=== PATIENT | female | born 1945 | race Caucasian/White ===

== ENCOUNTER → 2017-06-11 | Outpatient (REF) | payer MEDICARE ==
[2017-06-11 13:59] LABS: INFLUENZA A AMPLIFICATION NEGATIVE (NEGATIVE); INFLUENZA B AMPLIFICATION POSITIVE (NEGATIVE); RSV AMPLIFICATION NEGATIVE (NEGATIVE)
== END ==
LOC: M LAB REF 13:03
DX: J11.1 Influenza due to unidentified influenza virus with other respiratory manifestations (principal)
CPT/HCPCS: 87631

== ENCOUNTER → 2019-05-22 | Outpatient (CLI) | payer MEDICARE ==
[~2019-05-22] MED LIST: ALEV220C2 PO; COUM1TAB18 PO; OXYC1TAB23 PO; POLY1POW4 PO; SENO8.6T9 PO
[2019-05-22 17:25] LABS: ALBUMIN 3.7 GM/DL (3.2-5.2); ALT/SGPT 61 U/L (12-78); AMYLASE 68 U/L (25-115); BILIRUBIN,TOTAL 0.6 MG/DL (0.2-1.0); BLOOD UREA NITROGEN 17 MG/DL (7-18); C REACTIVE PROTEIN QUANTITATIV 0.48 MG/DL (0.00-0.30); CALCIUM LEVEL 9.1 MG/DL (8.8-10.2); CARBON DIOXIDE LEVEL 28 MEQ/L (21-32); CHLORIDE LEVEL 105 MEQ/L (98-107); CREATININE FOR GFR 0.38 MG/DL (0.55-1.30); GLOMERULAR FILTRATION RATE > 60.0 (>39); GLUCOSE, FASTING 99 MG/DL (70-100); LIPASE 248 U/L (73-393); POTASSIUM SERUM 3.9 MEQ/L (3.5-5.1); SODIUM LEVEL 141 MEQ/L (136-145); TOTAL PROTEIN 6.7 GM/DL (6.4-8.2)
[2019-05-22 17:33] LABS: BASO # 0.1 10^3/uL (0.0-0.2); BASO % 0.5 % (0.0-1.0); EOS % 0.3 % (0.0-3.0); HEMATOCRIT 46.3 % (36.0-47.0); HEMOGLOBIN 14.8 g/dl (12.0-15.5); LYMPH # 0.8 10^3/uL (1.5-5.0); LYMPH % 8.2 % (24.0-44.0); MEAN CORPUSCULAR HEMOGLOBIN 29.5 pg (27.0-33.0); MEAN CORPUSCULAR VOLUME 92.2 fl (80.0-96.0); MONO # 0.5 10^3/uL (0.0-0.8); MONO % 5.4 % (0.0-5.0); NEUTROPHILS # 8.2 10^3/uL (1.5-8.5); PLATELET COUNT, AUTOMATED 237 10^3/uL (150-450); RED BLOOD COUNT 5.02 10^6/uL (4.00-5.40); WHITE BLOOD COUNT 9.6 10^3/uL (4.0-10.0)
--- NOTE | 2019-05-23 07:58 | REP ---
KUB ABDOMEN AND PELVIS: AP view of the abdomen and pelvis is performed. I do not see significantly dilated small bowel loops with no compelling evidence for small bowel obstruction. Mild vascular calcifications are seen in the pelvis. There are mild degenerative changes of the spine. Metallic fixation is seen in the proximal right femur. IMPRESSION: No compelling evidence radiographically for small bowel obstruction. Electronically Signed by Augie Sanon MD 05/23/2019 06:04 P
[2019-05-23 13:22] LABS: HEPATITIS B SURFACE ANTIGEN NEGATIVE (NEGATIVE)
[2019-05-23 13:50] LABS: HEPATITIS B CORE ANTIBODY IGM NEGATIVE (NEGATIVE); HEPATITIS C VIRUS ABY INDEX < 0.0 INDEX (<0.8)
[2019-05-23 14:06] LABS: HEPATITIS A ANTIBODY IGM NEGATIVE (NEGATIVE)
== END ==
LOC: M WUC 15:06
PROVIDERS: ATTEND Physician Assistant
DX: R11.2 Nausea with vomiting, unspecified (principal); R10.84 Generalized abdominal pain

== ENCOUNTER 2019-05-25 18:36 | Emergency (ER) | payer MEDICARE ==
[~2019-05-25] VITALS: Ht 157.5 cm; Wt 43.1 kg
[2019-05-25] MEDS ORDERED: NON-325T5 PO (18:45)
[2019-05-25] MEDS ORDERED: ONDA4TAB6 (18:45)
[2019-05-25 19:49] LABS: BASO # 0.1 10^3/uL (0.0-0.2); BASO % 0.7 % (0.0-1.0); EOS % 0.3 % (0.0-3.0); HEMATOCRIT 44.3 % (36.0-47.0); HEMOGLOBIN 14.4 g/dl (12.0-15.5); LYMPH # 0.8 10^3/uL (1.5-5.0); LYMPH % 8.9 % (24.0-44.0); MEAN CORPUSCULAR HGB CONC 32.5 g/dl (32.0-36.5); MEAN CORPUSCULAR VOLUME 92.3 fl (80.0-96.0); MONO # 0.6 10^3/uL (0.0-0.8); MONO % 6.3 % (0.0-5.0); NEUTROPHILS # 7.5 10^3/uL (1.5-8.5); NEUTROPHILS % 82.9 % (36.0-66.0); PLATELET COUNT, AUTOMATED 225 10^3/uL (150-450); WHITE BLOOD COUNT 9.1 10^3/uL (4.0-10.0)
[2019-05-25 20:17] LABS: ALBUMIN 3.2 GM/DL (3.2-5.2); ALT/SGPT 80 U/L (12-78); BILIRUBIN,DIRECT 0.2 MG/DL (0.0-0.2); BILIRUBIN,TOTAL 0.5 MG/DL (0.2-1.0); BLOOD UREA NITROGEN 13 MG/DL (7-18); CALCIUM LEVEL 8.9 MG/DL (8.8-10.2); CARBON DIOXIDE LEVEL 30 MEQ/L (21-32); CHLORIDE LEVEL 103 MEQ/L (98-107); CREATININE FOR GFR 0.33 MG/DL (0.55-1.30); GLOMERULAR FILTRATION RATE > 60.0 (>39); GLUCOSE, FASTING 108 MG/DL (70-100); LIPASE 248 U/L (73-393); POTASSIUM SERUM 3.6 MEQ/L (3.5-5.1); SODIUM LEVEL 141 MEQ/L (136-145); TOTAL PROTEIN 6.3 GM/DL (6.4-8.2)
[2019-05-25] MEDS ORDERED: NS 1,000 ML IV ONE (20:30)
[2019-05-25] MEDS ORDERED: PANTOPRAZOLE 40MG INJ (PROTONIX) (C9113) IV ONE (20:30)
[2019-05-25] MEDS ORDERED: ISOVUE-370 76% 100ML VIAL (Q9967) As Ordered ONE (20:36)
--- NOTE | 2019-05-25 22:04 | REPVR ---
PROCEDURE INFORMATION: Exam: CT Abdomen And Pelvis With Contrast Exam date and time: 05/25/2019 8:42 PM Age: 73 years old Clinical indication: Abdominal pain; Localized; Right upper quadrant (ruq); Additional info: Ruq pain, n/v, fatigue TECHNIQUE: Imaging protocol: Computed tomography of the abdomen and pelvis with intravenous contrast. Radiation optimization: All CT scans at this facility use at least one of these dose optimization techniques: automated exposure control; mA and/or kV adjustment per patient size (includes targeted exams where dose is matched to clinical indication); or iterative reconstruction. Contrast material: ISOVUE 370; Contrast volume: 100 ml; Contrast route: IV; COMPARISON: CR Pelvis, complete 10/04/2012 9:22 PM FINDINGS: Liver: Multiple complex solid and mixed solid centrally necrotic hypodense masses in the liver consistent with metastatic disease measuring up to 7 cm in the hepatic dome. Hepatomegaly. Gallbladder and bile ducts: Normal. No calcified stones. No ductal dilation. Pancreas: Normal. No ductal dilation. Spleen: The spleen demonstrates punctate calcifications, consistent with remote granulomatous organism exposure. Adrenals: Normal. No mass. Kidneys and ureters: 5 cm simple cyst in the upper pole of the left kidney. Stomach and bowel: Several small bowel loops in the lower abdomen demonstrate thickened schofield. Finding may be related to hypoproteinemia. Clinical correlation to exclude enteritis suggested. Lobular process in the right colon at the ileocecal valve measures 4.8 x 2.3 x 2.8 cm. Finding may represent fluid contents from the small bowel entering the right colon although a necrotic mass not excluded. Correlation with colonoscopy suggested if clinically desired. Appendix: No evidence of appendicitis. Intraperitoneal space: Unremarkable. No free air. No significant fluid collection. Vasculature: The aorta demonstrates moderate atherosclerotic calcification. Lymph nodes: Unremarkable. No enlarged lymph nodes. Bladder: Unremarkable as visualized. Reproductive: There has been a hysterectomy. Bones/joints: Grade 1 anterolisthesis of L4 on L5. Mild central spinal stenosis at L2-L3, moderate central spinal stenosis at L3-L4, severe central spinal stenosis at L4-L5. ORIF right hip. Soft tissues: See Stomach And Bowel Finding. IMPRESSION: 1. Multiple complex solid and mixed solid centrally necrotic hypodense masses in the liver consistent with metastatic disease measuring up to 7 cm in the hepatic dome. Hepatomegaly. 2. Several small bowel loops in the lower abdomen demonstrate thickened schofield. Finding may be related to hypoproteinemia. Clinical correlation to exclude enteritis suggested. 3. There has been a hysterectomy. 4. Lobular process in the right colon at the ileocecal valve measures 4.8 x 2.3 x 2.8 cm. Finding may represent fluid contents from the small bowel entering the right colon although a necrotic mass not excluded. Correlation with colonoscopy suggested if clinically desired. Electronically signed by: Eros Munoz On 05/25/2019 22:04:29 PM
--- NOTE | 2019-05-25 23:42 | REPVR ---
PROCEDURE INFORMATION: Exam: CT Chest Without Contrast Exam date and time: 05/25/2019 10:50 PM Age: 73 years old Clinical indication: Mass, lump, or swelling in the chest; Additional info: Metastatic disease CT abd/pel, cxr w/abnormal mass finding TECHNIQUE: Imaging protocol: Computed tomography of the chest without contrast. 3D rendering: MIP and/or 3D reconstructed images were created by the technologist. Radiation optimization: All CT scans at this facility use at least one of these dose optimization techniques: automated exposure control; mA and/or kV adjustment per patient size (includes targeted exams where dose is matched to clinical indication); or iterative reconstruction. COMPARISON: CR Chest, 2 view PA, Lat 05/25/2019 8:32 PM FINDINGS: Lungs: Lungs are hyperinflated. Right upper lobe perihilar mass causes narrowing of the bronchus intermedius, and lobar bronchi on the right. No obstructing intraluminal masses identified. Small noncalcified nodules in the right lower lobe measuring up to 5 mm. No masses in the left lung. No airspace consolidation. Mild interstitial scarring in the lung apices. Pleural space: Unremarkable. No pneumothorax. No pleural effusion. Heart: Coronary artery atherosclerotic disease is present. Mediastinum: Ill-defined mass in the right hilum which is not clearly separable from adjacent mediastinal vascular and bronchial structures. Aorta: Unremarkable. No aortic aneurysm. Lymph nodes: Small mediastinal lymph nodes are noted but are difficult to evaluate or measure due to lack of intravenous contrast. Liver: Innumerable masses of varying size throughout the liver. Bones/joints: Ill-defined area of sclerosis in the T12 vertebral body. No destructive bone lesions are seen. Mild degenerative spondylosis. Soft tissues: Additional scattered small calcified granulomata on the right. IMPRESSION: 1. Ill-defined right lower lobe perihilar mass encasing and narrowing the right pulmonary airways. Additional small nodules in the right lung. Mild mediastinal adenopathy, suboptimally visualized without IV contrast. 2. Ill-defined area of sclerosis at T12 is nonspecific but metastatic disease cannot be excluded. No destructive bone lesions or pathologic fracture. 3. Innumerable masses in the liver. Electronically signed by: Nishant Randall On 05/25/2019 23:41:37 PM
--- NOTE | 2019-05-26 00:47 | REP ---
Clinical: Decreased appetite and fatigue . Comparison: 10/04/2012 . Technique: PA and lateral. Findings: The mediastinum and cardiac silhouette are essentially normal. The lung fernandez demonstrate chronic-appearing changes without acute consolidation, effusion, or pneumothorax. The skeletal structures are intact and normal. Impression: 1. No obvious acute cardiopulmonary process. Electronically Signed by Fran Stanley MD 05/26/2019 12:37 A
[2019-05-26] MEDS ORDERED: MACR100C43 PO (00:50)
[2019-05-26] MEDS ORDERED: PANT40TA3 PO (00:50)
[2019-05-26] MEDS ORDERED: ONDA4TAB6 PO (00:50)
[2019-05-26] MEDS ORDERED: NORC1TAB7 PO (00:50)
[2019-05-26] MEDS ORDERED: NORCO 5/325MG TABLET (BULK FOR ED) PO ONE (01:00)
[2019-05-26] MEDS ORDERED: NITROFURANTOIN (MACROBID) 100 MG CAP PO ONE (01:00)
[2019-05-26] MEDS: ONDANSETRON 4 MG TAB (S0181) PO ONE ×2 (01:21→01:29)
[2019-05-26 01:25] VITALS: BP 135/71
[2019-05-26] MEDS ORDERED: ONDANSETRON 4 MG ORAL DISINTEGRATING TAB (Q0162 PER 1MG) PO ONE (01:30)
--- NOTE | 2019-05-26 11:53 | ED PDOC ---
Post-Departure Follow-Up dr padron and dr aguilar faxed formal report of ct abd/p for fu Dilip Reyes MD May 26, 2019 11:53
--- NOTE | 2019-05-26 15:36 | ED PDOC ---
Post-Departure Follow-Up Dr. Moss consulted at 2330 on 05/25/[address] ABD/PEL was reviewed. CT findings discussed with Dr. Moss along with labs and pt's c/o and current condition. Dr. Moss stated that there wasn't anything acutely emergent nor surgical after review of CT ABD/PEL. Lyndsay WisemanP May 26, 2019 15:36
[2019-05-31] MEDS ORDERED: D3 22000 PO (08:58)
[2019-05-31] MEDS ORDERED: MULTCAP PO (08:58)
[2019-05-31] MEDS ORDERED: ZOFR8TAB24 PO (09:38)
== END 2019-05-26 02:00 | disposition home or self-care (01) ==
LOC: M ED 18:36
DX: N39.0 Urinary tract infection, site not specified (principal); R91.8 Other nonspecific abnormal finding of lung field; R93.2 Abnormal findings on diagnostic imaging of liver and biliary tract; R93.7 Abnormal findings on diagnostic imaging of other parts of musculoskeletal system; R16.0 Hepatomegaly, not elsewhere classified; R93.3 Abnormal findings on diagnostic imaging of other parts of digestive tract; Z87.01 Personal history of pneumonia (recurrent); Z85.43 Personal history of malignant neoplasm of ovary; Z92.3 Personal history of irradiation; F17.200 Nicotine dependence, unspecified, uncomplicated; Z79.899 Other long term (current) drug therapy
CPT/HCPCS: 36415; 71046; 71250; 74177; 80048; 80076; 81001; 83690; 85025; 87086; 96374; 99284; C9113; Q0162; Q9967

== ENCOUNTER → 2019-06-02 | Outpatient (CLI) | payer MEDICARE ==
[~2019-06-02] MED LIST changes: +D3 22000 PO; +HYDR-3713 PO; +LIDOCAINE 1% MDV 20ML VIAL As Ordered ONE; +MACR100C43 PO; +MULTCAP PO; +NITR100C2 PO; +NON-325T5 PO; +NORC1TAB7 PO; +ONDA4TAB6 PO; +ONDA8TAB10 PO; +PANT-23 PO; +PANT40TA3 PO; +ZOFR8TAB24 PO
[2019-06-02 14:20] VITALS: BP 124/64
--- NOTE | 2019-06-02 17:04 | REP ---
Ultrasound-guided targeted liver biopsy This procedure was performed by Lashaun DOUGLAS, under the direct supervision of Dr. Santoyo. The risks and benefits of the procedure were explained to the patient and informed consent was obtained both verbally and written. Directly prior to the start of the procedure, a formal timeout was done in the procedure room. A mass in the left lobe of the liver was localized using ultrasound guidance. The skin was prepped and draped in a sterile fashion. 10 ml of 1% lidocaine 10 mg/ml was used as a local anesthetic. Using ultrasound guidance a small skin demetrio was made and a 19/20 gauge coaxial needle biopsy system was inserted and advanced into the liver. 8 core biopsy samples were obtained and sent to the lab. The patient tolerated the procedure well and there were no immediate complications. After the appropriate monitored convalescence the patient was discharged home from the department. Reviewed by STELLA Nichols 06/02/2019 02:54 P Electronically Signed by Sathish Santoyo MD 06/02/2019 04:55 P
== END ==
LOC: M IRPRO 11:28
PROVIDERS: ATTEND Internal Medicine Hematology & Oncology
DX: C78.7 Secondary malignant neoplasm of liver and intrahepatic bile duct (principal)

== ENCOUNTER 2019-06-04 20:07 | Inpatient (IN) | payer MEDICARE ==
[~2019-06-04] VITALS: Ht 157.5 cm; Wt 39.6 kg
[~2019-06-04 20:07] MED LIST changes: -HYDR-3713 PO; -LIDOCAINE 1% MDV 20ML VIAL As Ordered ONE; -NITR100C2 PO; -ONDA8TAB10 PO; -PANT-23 PO
[2019-06-04] MEDS ORDERED: NS 1,000 ML IV ONE (20:45)
[2019-06-04 20:48] LABS: BASO % 0.4 % (0.0-1.0); EOS % 0.1 % (0.0-3.0); HEMATOCRIT 46.9 % (36.0-47.0); HEMOGLOBIN 15.2 g/dl (12.0-15.5); LYMPH # 0.8 10^3/uL (1.5-5.0); MEAN CORPUSCULAR HEMOGLOBIN 29.4 pg (27.0-33.0); MEAN CORPUSCULAR HGB CONC 32.4 g/dl (32.0-36.5); MEAN CORPUSCULAR VOLUME 90.7 fl (80.0-96.0); MONO # 0.8 10^3/uL (0.0-0.8); MONO % 7.2 % (0.0-5.0); NEUTROPHILS # 9.1 10^3/uL (1.5-8.5); NEUTROPHILS % 84.5 % (36.0-66.0); PLATELET COUNT, AUTOMATED 250 10^3/uL (150-450); RED BLOOD COUNT 5.17 10^6/uL (4.00-5.40); WHITE BLOOD COUNT 10.8 10^3/uL (4.0-10.0)
[2019-06-04] MEDS ORDERED: ISOVUE-370 76% 100ML VIAL (Q9967) As Ordered ONE (20:59)
[2019-06-04 21:14] LABS: ALBUMIN 3.5 GM/DL (3.2-5.2); BILIRUBIN,DIRECT 0.4 MG/DL (0.0-0.2); BILIRUBIN,TOTAL 0.8 MG/DL (0.2-1.0); TOTAL PROTEIN 7.1 GM/DL (6.4-8.2)
--- NOTE | 2019-06-04 21:30 | REPVR ---
PROCEDURE INFORMATION: Exam: CT Head Without Contrast Exam date and time: 06/04/2019 9:05 PM Age: 73 years old Clinical indication: Altered mental status/memory loss; Additional info: Weakness, altered mental status, new dx of masses TECHNIQUE: Imaging protocol: Computed tomography of the head without contrast. Radiation optimization: All CT scans at this facility use at least one of these dose optimization techniques: automated exposure control; mA and/or kV adjustment per patient size (includes targeted exams where dose is matched to clinical indication); or iterative reconstruction. COMPARISON: No relevant prior studies available. FINDINGS: Brain: Numerous hyperdense ring densities bilaterally involving the cerebral hemispheres and cerebellum. There is minimal patchy low attenuation of deep white matter. Ventricles: Normal. No ventriculomegaly. Bones/joints: Unremarkable. No acute fracture. Sinuses: Visualized sinuses are unremarkable. No fluid levels. Mastoid air cells: Visualized mastoid air cells are well aerated. Soft tissues: Unremarkable. Other findings: Mild hyperdense extra-axial mass in the paramedian right frontal region measuring up to 12 mm in thickness and approximately 28 mm across. IMPRESSION: 1. Multiple ring nodules throughout the cerebral hemispheres and cerebellum consistent with metastatic disease. 2. Extra-axial soft tissue density in the paramedian right frontal lobe which may reflect leptomeningeal or dural metastasis. A meningioma is not excluded. 3. Minimal chronic ischemic white matter change. Electronically signed by: Wan Partida On 06/04/2019 21:29:46 PM
--- NOTE | 2019-06-04 21:37 | REPVR ---
PROCEDURE INFORMATION: Exam: CT Abdomen And Pelvis With Contrast Exam date and time: 06/04/2019 9:05 PM Age: 73 years old Clinical indication: Abdominal pain; Generalized; Additional info: Weakness, altered mental status, new dx of masses TECHNIQUE: Imaging protocol: Computed tomography of the abdomen and pelvis with intravenous contrast. Radiation optimization: All CT scans at this facility use at least one of these dose optimization techniques: automated exposure control; mA and/or kV adjustment per patient size (includes targeted exams where dose is matched to clinical indication); or iterative reconstruction. Contrast material: ISOVUE 370; Contrast volume: 90 ml; Contrast route: IV; COMPARISON: CT ABD/PEL W/IV CONTRAST ONLY 05/25/2019 8:38 PM FINDINGS: Lungs: Minimal lingular atelectasis or scar. Liver: Enlarged liver with extensive replacement with multiple large focal nodules consistent with metastatic disease. There is compression of the intrahepatic IVC. Gallbladder and bile ducts: Normal. No calcified stones. No ductal dilation. Pancreas: The pancreatic head is displaced into the left abdomen. Spleen: Splenic calcifications. Adrenals: Normal. No mass. Kidneys and ureters: There is a simple appearing left renal cyst measuring up to 5.6 cm. Stomach and bowel: Unremarkable. No obstruction. No mucosal thickening. Appendix: There are no changes of appendicitis. A normal appendix is not seen. Intraperitoneal space: Trace fluid in the pelvis. Vasculature: There is mild calcification of the abdominal aorta with extension into the iliac arteries. Lymph nodes: Unremarkable. No enlarged lymph nodes. Bladder: Unremarkable as visualized. Reproductive: Status post hysterectomy. Bones/joints: Right hip compression screw in position. Mottled sclerosis of the right anterolateral aspect of the T12 vertebral body which is similar to the prior study. Facet arthropathy of the lower lumbar spine. Soft tissues: Unremarkable. IMPRESSION: 1. Hepatomegaly with extensive replacement with multiple metastatic lesions which is similar to 05/25/2019. 2. Mottled sclerosis in the right anterolateral aspect of the T12 vertebral segment which may reflect metastatic disease and is similar. 3. Old granulomatous disease of the spleen. 4. Status post hysterectomy. 5. Trace fluid in the pelvis which is nonspecific. Electronically signed by: Wan Partida On 06/04/2019 21:37:30 PM
[2019-06-04] MEDS ORDERED: ONDANSETRON 4MG/2ML VIAL (J2405) IV ONE (23:15)
[2019-06-05] MEDS: MORPHINE 2 MG/ML 1ML VIAL (J2270) IV PRN ×2 (00:24→03:05)
[2019-06-05] MEDS ORDERED: PANT-23 PO (01:12)
[2019-06-05] MEDS ORDERED: ONDA8TAB10 PO (01:12)
[2019-06-05] MEDS ORDERED: HYDR-3713 PO (01:12)
[2019-06-05] MEDS ORDERED: NITR100C2 PO (01:12)
[2019-06-05] MEDS ORDERED: MORPHINE 2 MG/ML 1ML VIAL (J2270) IV PRN (02:30)
[2019-06-05] MEDS ORDERED: ACETAMINOPHEN TAB 650MG DOSE (2X325MG) PO PRN (02:30)
[2019-06-05] MEDS: NS 1,000 ML IV SCH ×3 (03:03→22:49)
[2019-06-05 03:40] VITALS: BP 154/94
--- NOTE | 2019-06-05 04:29 | HPEPDOC ---
General Date of Admission Jun 05, 2019 at 02:26 Date of Service: Jun 05, 2019 Attending Physician: STEFAN ALMANZAR MD Chief Complaint The patient is a 73-year-old female admitted with a reason for visit of Cancer Related Pain;. Source: Family Exam Limitations: Clinical conditions Timing/Duration: Day(s), Getting worse Severity: Moderate Associated Symptoms: Other (diffuse pain and discomfort) History of Present Illness 73 yo woman who until recently was functioning independently and working at the [employer] and was recently diagnosed with metastatic lung cancer with ongoing work up with recent liver mets biopsy last , smoker, with a history of remote uterine CA s/p XRT and osteoarthritis who was brought in by her family for diffuse pain complaints with associated restlessness, poor PO and general failure to thrive and lethargy. Of note, Ms. Aguero recently had chest CT that revealed a RUL perhilar mass on 05/[address] A/P revealed hepatomegaly with extensive replacement with nodular mets that were recently biopsied. She has scheduled MRI brain and spine as well as a PET per her oncology workup. The family brought her in today because she has rapidly declined, is spending most of her time in bed, is not eating, is restless with pain mostly in her back and have had to move in with one of her daughters as she was independently living up in her own home up until recently. In the ED vitals were 120/90. HR 125, afebrile, RR18 and she was saturating 94% on room air. She was given 1L NS, zofran from nausea and morphine 2mg IV with some relief. Workup today was notable for WBC 10.8, H/H 15.2/46.9, Cr 0.3, AST 326, ALT 95, alk phos 490, normal bilis, UA with 2+ leuko esterase, 21 WBC, 10 RBCs, while CT head revealed wide hyperdense ring densities as well as [id number] mild hyperdense extra-axial mass in the paramedian R frontal region c/f leptomeningeal or dural mets, while CXR revealed the known perihilar opacity/mass. I am now admitting her for pain control, with plan to consider total spine MRI given her diffuse back pain, consultation with oncology and PFS and SW. Home Medications Scheduled Cholecalciferol (Vitamin D3) (Vitamin D3) 2,000 Unit Tablet, 2,000 UNIT PO DAILY, (Reported) Nitrofurantoin Monohyd/M-Cryst (Nitrofurantoin Hickman-Mcr 100 mg) 100 Mg Capsule, 100 MG PO BID, (Reported) Pantoprazole Sodium (Pantoprazole Sodium) 40 Mg Tablet.dr, 40 MG PO BID, (Reported) Scheduled PRN Hydrocodone/Acetaminophen (Hydrocodone-Acetamin 5-325 mg) 1 Each Tablet, 1 TAB PO TID PRN for pain, (Reported) Ondansetron (Ondansetron Odt) 4 Mg Tab.rapdis, 4 MG PO Q6-8H PRN for NAUSEA OR VOMITING, (Reported) Ondansetron HCl (Ondansetron HCl) 8 Mg Tablet, 8 MG PO Q4-6H PRN for NAUSEA OR VOMITING, (Reported) Allergies Coded Allergies: No Known Drug Allergies (Verified Allergy, Unknown, 05/25/19) Past Medical History Medical History Recently diagnosed with metastatic lung CA remote history of uterine cancer s/p XRT OA Current smoker Surgical History Appendectomy C section Hysterectomy R hip arthroplasty Family History Significant Family History: No pertinent family hx Social History * Smoker: current smoker Alcohol: Denies Drugs: denies Recent Travel/Sick Contacts: Denies: Recent travel, Recent sick contacts Psychosocial History: No pertinent psych hx A-FIB/CHADSVASC A-FIB History Current/History of A-Fib/PAF?: No Current PO Anticoag Therapy: No Age/Risk Factor Scoring CHADSVASC: CHADSVASC Response (Comments) Value Age Risk Factor Age 65-74 years old 1 Gender Risk Factor Female 1 Hx of CHF No 0 Hx of HTN No 0 Hx of Stroke/TIA/or VTE No 0 Hx of Diabetes No 0 Hx of Vascular Disease No 0 Total 2 Treatment Treatment ordered: NONE Reason Anticoagulant not given: Not indicated/[id number] Review of Systems Constitutional: Reports: Weakness, Fatigue, Weight Loss, Lethargy; Denies: Chills, Fever, Night Sweats Eyes: Denies: Pain, Vision change ENT: Denies: Head Aches, Ear Pain, Dysphagia Skin: Denies: Rash, Lesions, Breakdown Pulmonary: Denies: Dyspnea, Cough Cardiovascular: Denies: Chest Pain, Palpitations, Orthopnea, Paroxysmal Noc. Dyspnea, Lt Headedness Gastrointestinal: Reports: Nausea, Vomiting, Abdominal Pain; Denies: Diarrhea Genitourinary: Denies: Dysuria, Frequency, Incontinence, Retention Hematologic: Denies: Bruising, Bleeding Excessively Endocrine: Denies: Polydipsia, Polyphagia, Polyuria, Heat Intolerance, Cold Intolerance, Other Endocrine Sx Musculoskeletal: Reports: Back Pain Neurological: Denies: Weakness, Numbness, Change in speech, Confusion Psych: Reports: Mood Normal, Anxiety; Denies: Depression, Memory Issues Physical Examination General Exam: Positive: Alert (sleepy, alert on addressing her by voice but falls right back to sleep while speaking with her), No Acute Distress, Other (thin, ill appearing, pale) Eye Exam: Positive: PERRLA, Conjunctiva & lids normal, EOMI; Negative: Sclera icteric ENT Exam: Positive: Atraumatic, Mucous membr. moist/pink, Pharynx Normal Neck Exam: Positive: Supple; Negative: JVD, thyromegaly Chest Exam: Positive: Clear to auscultation, Normal air movement Heart Exam: Positive: Tachycardic, Regular Rhythm, Normal S1, Normal S2; Negative: Murmurs, Rubs Telemetry: Positive: Sinus, Tachycardia Abdomen Exam: Positive: BS Hypoactive, Soft, Hepatospenomegaly (palpable hepatomegaly); Negative: Tenderness Extremity Exam: Positive: Normal pulses; Negative: Clubbing, Cyanosis, Edema, Tenderness, Swelling Skin Exam: Positive: Nl turgor and temperature; Negative: Breakdown, Lesion Neuro Exam: Positive: Normal Speech, Cranial Nerves 3-12 NL; Negative: Strength at 5/5 X4 ext (moves all limbs spontaneously, strength I could not assess as she could stay awake enough to cooperate with strength te sting) Psych Exam: Positive: Oriented x 3 (when asked, completely oriented) Vital Signs Vital Signs Date Time Temp Pulse Resp B/P (MAP) Pulse Ox O2 Delivery O2 Flow Rate FiO2 06/05/19 03:05 22 96 Nasal Cannula 3.0 06/05/19 02:45 118 146/78 (100) 06/04/19 20:07 98.3 Laboratory Data Labs 24H Laboratory Tests 2 06/04/19 20:36: Immature Granulocyte % (Auto) 0.8, Neutrophils (%) (Auto) 84.5H, Lymphocytes (%) (Auto) 7.0L, Monocytes (%) (Auto) 7.2H, Eosinophils (%) (Auto) 0.1, Basophils (%) (Auto) 0.4, Neutrophils # (Auto) 9.1H, Lymphocytes # (Auto) 0.8L, Monocytes # (Auto) 0.8, Eosinophils # (Auto) 0.0, Basophils # (Auto) 0.0, Nucleated Red Blood Cells % (auto) 0.0, Total Bilirubin 0.8, Direct Bilirubin 0.4H, Aspartate Amino Transf (AST/SGOT) 326H, Alanine Aminotransferase (ALT/SGPT) 95H, Alkaline Phosphatase 490H, Total Protein 7.1, Albumin 3.5, Albumin/Globulin Ratio 0.97L, Lipase 284 06/04/19 20:37: Lactic Acid Level 2.0 06/04/19 20:41: POC Glucose (Misc Panel) 136H, POC Sodium (Misc Panel) 137, POC Potassium (Misc Panel) 3.9, POC Chloride (Misc Panel) 99, POC Total CO2 (Misc Panel) 29.0H, POC Blood Urea Nitrogen (Misc Panel 29H, POC Ionized Calcium (Misc Panel) 5.0, POC Creatinine (Misc Panel) 0.3L, POC Hematocrit (Misc Panel) 47.0 06/04/19 21:43: Urine Color YELLOW, Urine Appearance HAZY, Urine pH 6.0, Urine Specific [place] >1.060H, Urine Protein 2+H, Urine Glucose (UA) NEGATIVE, Urine Ketones 1+H, Urine Blood NEGATIVE, Urine Nitrite NEGATIVE, Urine Bilirubin NEGATIVE, Urine Urobilinogen 2.0H, Urine Leukocyte Esterase 2+H, Urine WBC (Auto) 21H, Urine RBC (Auto) 10H, Urine Hyaline Casts (Auto) 0, Urine Bacteria (Auto) NEGATIVE, Urine Squamous Epithelial Cells 4, Urine Transitional Epithelial Cells 1, Urine Mucus (Auto) SMALL, Urine Sperm (Auto) CBC/BMP Laboratory Tests 06/04/19 20:36 Microbiology Microbiology 06/04/19 Urine Culture, Received Pending 06/04/19 Blood Culture, Received Pending Assessment/Plan 73 yo woman who until recently was functioning independently and working at the [facility] home and was recently diagnosed with metastatic lung cancer with ongoing work up with recent liver mets biopsy last , smoker, with a history of remote uterine CA who was brought in by her family for diffuse pain complaints with associated restlessness, poor PO and general failure to thrive and lethargy. Metastatic lung CA: Was undergoing workup outpatient, pending brain and spine imaging and PET. Recently underwent liver biospy of liver mets. -CT head with widely metastatic disease -CT A/P with hepatic mets and infiltration -back pain likely 2/2 to metastatic disease, daughter wanted to defer MRI to tomorrow --> to discuss MRI of total spine? -oncology consult as the head CT suggests intracranial and leptomeningeal involvement -Pain control with morphine 2mg Q 4H PRN for severe pain Failure to thrive: -Regular diet + Ensure -PT/OT -Palliative care consult -Depending on conversation with oncology, may opt for hospice care depending on final GOC -Zofran PRN for nausea GOC discussions: -Daughter leaning towards DNR/DNI but family had not discussed this yet, wanted until tomorrow morning to liase with her siblings on code status -Family requesting PFS and SW help with discharge planning -Oncology to consulted for prognostication, palliative treatment options and GOC discussion Possible UTI? Currently with asymptomatic active sediment with no bacteria, with history of recent macrobid prescribed on 05/30? -Ceftriaxone for presumed UTI DVT ppx: heparin Diet: regular + ensure Plan / VTE VTE Prophylaxis Ordered?: Yes STEFAN ALMANZAR MD Jun 05, 2019 04:29
[2019-06-05 06:00] VITALS: BP 139/76
[2019-06-05] MEDS: HEPARIN SOD (PORCINE) 5000 UNITS/ML VIAL (J1644 PER 1000UNITS) SC SCH ×4 (06:00→21:09)
--- NOTE | 2019-06-05 06:32 | ECGEPIP ---
[facility] - ED Test Date: 2019-06-04 Pat Name: VINOD AGUILA Department: Room: [place] [address] Gender: Female Clinical Coordinator: remington : 1945 Requested By: SHEELA Sherwood Order Number: [id number] Reading MD: Dilip Patricio Measurements Intervals [place] Rate: 119 P: 63 NV: 147 QRS: 56 QRSD: 79 T: 77 QT: 305 QTc: 429 Interpretive Statements SINUS TACHYCARDIA MODERATE ST DEPRESSION NO PRIOR ECG FOR COMPARISON CLINICAL CORRELATION ADVISED Electronically Signed on 06-05-2019 6:31:51 EST by Dilip Patricio
[2019-06-05] MEDS: PANTOPRAZOLE 40MG TAB (PROTONIX) PO SCH ×2 (09:00→21:00)
[2019-06-05] MEDS: VITAMIN D 1,000 INTERNATIONAL UNITS TABLET PO SCH (09:00)
[2019-06-05] MEDS: ONDANSETRON 4MG/2ML VIAL (J2405) IV PRN ×2 (09:21→21:09)
--- NOTE | 2019-06-05 10:10 | REP ---
AP PORTABLE CHEST: 06/04/2019. Clinical history: Weakness. Recent discovery right lung mass and multiple masses in the liver. Comparison: CT and chest x-ray 05/25/2019. Findings: The AP chest shows the lung fernandez are well inflated. There is some apical pleural scarring bilaterally. No dense consolidation or air bronchograms. Interstitial fibrotic changes are seen. No definite effusion. Fullness about the hilar region, right greater than left, again noted. There is no cardiomegaly or cecille edema. The aorta is tortuous at the arch but unchanged. Airway midline. Bones are demineralized. Impression: 1. Some underlying fibrosis and COPD with apical pleuroparenchymal scarring. Fullness of the bilateral hansa, right greater than left. 2. No cardiomegaly, cecille edema or pleural effusion. 3. Demineralization. Electronically Signed by Seth Whittington MD 06/05/2019 08:19 P
[2019-06-05] MEDS ORDERED: dexameTHASONE 4 MG/ML 1ML VIAL (J1100) IV SCH (13:45)
[2019-06-05 14:00] VITALS: BP 142/92
[2019-06-05] MEDS: dexameTHASONE 4 MG/ML 1ML VIAL (J1100) IV SCH ×2 (14:15→21:11)
[2019-06-05 22:00] VITALS: BP 141/89
[2019-06-06] MEDS: dexameTHASONE 4 MG/ML 1ML VIAL (J1100) IV SCH ×4 (01:57→20:18)
[2019-06-06 06:00] VITALS: BP 133/81
[2019-06-06] MEDS: HEPARIN SOD (PORCINE) 5000 UNITS/ML VIAL (J1644 PER 1000UNITS) SC SCH ×3 (06:26→20:18)
[2019-06-06 06:32] LABS: HEMATOCRIT 38.6 % (36.0-47.0); MEAN CORPUSCULAR HEMOGLOBIN 30.1 pg (27.0-33.0); MEAN CORPUSCULAR HGB CONC 32.6 g/dl (32.0-36.5); MEAN CORPUSCULAR VOLUME 92.1 fl (80.0-96.0); PLATELET COUNT, AUTOMATED 190 10^3/uL (150-450); RED BLOOD COUNT 4.19 10^6/uL (4.00-5.40); WHITE BLOOD COUNT 10.9 10^3/uL (4.0-10.0)
[2019-06-06 06:34] LABS: HEMOGLOBIN 12.6 g/dl (12.0-15.5)
[2019-06-06 06:53] LABS: ALBUMIN 2.4 GM/DL (3.2-5.2); ALT/SGPT 58 U/L (12-78); BLOOD UREA NITROGEN 24 MG/DL (7-18); CARBON DIOXIDE LEVEL 27 MEQ/L (21-32); CHLORIDE LEVEL 107 MEQ/L (98-107); CREATININE FOR GFR 0.22 MG/DL (0.55-1.30); GLOMERULAR FILTRATION RATE > 60.0 (>39); GLUCOSE, FASTING 81 MG/DL (70-100); MAGNESIUM LEVEL 1.7 MG/DL (1.8-2.4); POTASSIUM SERUM 3.4 MEQ/L (3.5-5.1); SODIUM LEVEL 141 MEQ/L (136-145); TOTAL PROTEIN 5.7 GM/DL (6.4-8.2)
[2019-06-06] MEDS: PANTOPRAZOLE 40MG TAB (PROTONIX) PO SCH ×2 (09:00→20:19)
[2019-06-06] MEDS: VITAMIN D 1,000 INTERNATIONAL UNITS TABLET PO SCH (09:00)
[2019-06-06] MEDS: ONDANSETRON 4MG/2ML VIAL (J2405) IV PRN (09:14)
[2019-06-06] MEDS ORDERED: MAG SULF 1GM/100ML (MAG RUN) 1 GM in IV 1 EA IV ONE (10:00)
[2019-06-06] MEDS: KCL 10MEQ/100ML SWI (KRUN) 10 MEQ in IV 1 EA IV SCH ×2 (10:25→13:54)
--- NOTE | 2019-06-06 10:46 | IPNPDOC ---
Subjective Date Seen The patient was seen on 06/06/19. Subjective Chief Complaint/HPI Patient is comfortable, is more awake and alert with Decadron will is still not taken any oral meds General: Reports: ROS Unobtainable (secondary to patient's mental status), Other Symptoms (patient is lethargic, unable to answer my questions) Objective Physical Examination Chest Exam: Positive: Clear to auscultation, Normal air movement Heart Exam: Positive: Tachycardic, Regular Rhythm, Normal S1, Normal S2; Negative: Murmurs, Rubs Telemetry: Positive: Sinus, Tachycardia Abdomen Exam: Positive: BS Hypoactive, Soft, Hepatospenomegaly (palpable hepatomegaly) Extremity Exam: Positive: Normal pulses Assessment /Plan Problems (1) Acute metabolic encephalopathy Status: Acute Problem Text: Patient metabolic encephalopathy secondary to metastatic disease to brain with cerebral edema Patient is slightly improved with IV Decadron 1 mg IV every 6 hours Will change to by mouth once patient is ready to go home with home hospice (2) Carcinoma of lung Status: Acute Problem Text: Discussed with Dr. Anne yesterday Aurelia Barrera. The patient and she got a DNR from patient and his advise hospice care. Patient's condition is terminal very poor prognosis I had a discussion with patient's daughter this morning and she agreed with home hospice. 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 Status: Acute Problem Text: As above (4) Hypomagnesemia Status: Acute Problem Text: Mag sulfate 1 g IV has been ordered (5) Hypokalemia Status: Acute Problem Text: KCl 10 mEq 2 runs have been ordered (6) Protein-calorie malnutrition, severe Status: Acute Problem Text: Severe protein calorie malnutrition secondary to malignancy Patient is not taking any meals orally at the present time Will continue supportive care and hospice care is pending Plan/VTE VTE Prophylaxis Ordered?: Yes VS, I&O, 24H, Fishbone Vital Signs/I&O Vital Signs Date Time Temp Pulse Resp B/P (MAP) Pulse Ox O2 Delivery O2 Flow Rate FiO2 06/06/19 06:00 98.9 113 18 133/81 (98) 91 Nasal Cannula 3.0 I&O- Last 24 Hours up to 6 AM 06/06/19 05:59 Intake Total 847 ml Output Total 0 ml Balance 847 ml Laboratory Data 24H LABS Laboratory Tests 2 06/06/19 06:05: Nucleated Red Blood Cells % (auto) 0.0, Anion Gap 7L, Glomerular Filtration Rate > 60.0, Calcium Level 9.0, Magnesium Level 1.7L, Total Bilirubin 1.0, Aspartate Amino Transf (AST/SGOT) 253H, Alanine Aminotransferase (ALT/SGPT) 58, Alkaline Phosphatase 324H, Total Protein 5.7L, Albumin 2.4#L, Albumin/Globulin Ratio 0.73L CBC/BMP Laboratory Tests 06/06/19 06:05 Microbiology Microbiology 06/04/19 Urine Culture - Preliminary, Resulted Strep Agalactiae Group B 06/04/19 Blood Culture - Preliminary, Resulted No growth after 24 hours . All specim... JOSELINE JAFFE MD Jun 06, 2019 10:46
[2019-06-06] MEDS: NS 1,000 ML IV SCH (12:18)
[2019-06-06 14:00] VITALS: BP 130/65
--- NOTE | 2019-06-06 18:55 | CR ---
DATE: 06/05/2019 REQUESTING PHYSICIAN: Dr. Mo Jo, hospitalist service. Anya Aguero is a 73-year-old woman recently seen for the first time in oncology service on 05/31/2019 presenting after having been found to have a right hilar mass with encasement of bronchi, right lower lobe pulmonary nodules, liver metastases. She was seen by Jose Guadalupe Spicer MD and a workup was ordered. The differential diagnosis was of metastatic lung cancer and possibly other metastatic solid tumor. On 06/02/2019, she underwent liver biopsy, pathology subsequently returning is positive for small cell lung cancer. She presented to the hospital yesterday, 06/04/2019, with decreased mental status, increased weakness and on head CT in the emergency room was found to have numerous hyperdense ring densities bilaterally involving cerebral hemispheres as well as cerebellum with a mild hyperdense extra-axial mass in the right paramedian frontal region up to 12 x 28 mm. This was thought possibly to reflect leptomeningeal or dural metastasis versus meningioma. Chest x-ray showed fullness in the right greater than left hilar region and abdomen / pelvis CT showed hepatomegaly with extensive replacement with multiple hepatic lesions similar to 05/25/2019, sclerosis in the right anterolateral T12 vertebra, suspected metastasis also similar and trace pelvic fluid. At the bedside, Anya is lying down, her eyes closed. She responds to voice with eye-opening and in one word responses acknowledges the speaker. She does not answer questions. She is accompanied by her daughter Dania. Dr. Jo asked if I would explained the findings and prognosis which I spent most of an approximate hour total with Dania, her brother, Gómez ("Koby"), and her son Parveen. I explained small cell lung cancer is an aggressive form of lung cancer, when metastatic is incurable, and when diffusely involving the brain harbors a very poor prognosis. Further, immediate treatment of diffuse brain metastases would involve radiation, leaving the systemic disease unaddressed for a few weeks; systemic disease in a 73-year-old with suspected or even possible leptomeningeal involvement, and possible bone marrow involvement would be difficult to tolerate, may leave the patient bedridden in the near term, and in conjunction with radiation might render her quality of life extremely poor, bedridden with only minimal possible life expectancy, versus no treatment. This was hard news for the family. They were not expecting such a rapid decline but acknowledged that at home Anya has become increasingly weak and needed a family member near in the last few weeks. She has had no hemoptysis at home. Anya would intermittently respond to my voice by opening her eyes but not answer quite basic questions. At length, I discussed options, on the extreme of aggressive treatment would include whole brain radiation, working up the spine with MRI, systemic chemotherapy (I left out a possibility of intrathecal chemotherapy); on very conservative end of the spectrum comfort measures. Anya's children, with Koby speaking for her as her healthcare proxy, elected for hospice care and we completed a MOL[facility] form. They were reluctant to check the box for "comfort measures only" and chose instead limited interventions. The remainder were DO NOT RESUSCITATE / DO NOT INTUBATE. I have placed a hospice consult, and the DO NOT RESUSCITATE order in the chart. IMPRESSION: Very advanced small cell lung carcinoma in 73-year-old woman now with ECOG Performance 4, declining rapidly; suspicion for leptomeningeal disease involvement; poor candidate for treatment. PLAN/RECOMMENDATIONS: 1. I spoke with Dr. Jo about starting dexamethasone 4 mg every 6 hours by mouth versus possibly every 8-12 hours IV to help with any present brain swelling. 2. DO NOT RESUSCITATE order completed and placed. 3. Extensive discussion with family prior to the above and they expressed their wishes for Anya to be comfortable, not in pain, but they want to make sure she gets some fluids if needed and then if she is able to be awake that they can talk with her a little bit. 4. Life expectancy without treatment in this case is likely on the order of days, possibly weeks at most. I did apprise the family that the patient may not be well enough to go home with hospice but the next few days will reveal more. I was cecille with them about her life expectancy as I see it today. Time statement: 45 minutes [id number] with the family and the patient. More than 50% involved in counseling and care coordination. [facility]
[2019-06-06] MEDS: MORPHINE 2 MG/ML 1ML VIAL (J2270) IV PRN (20:41)
[2019-06-06 22:00] VITALS: BP 138/80
[2019-06-07] MEDS: dexameTHASONE 4 MG/ML 1ML VIAL (J1100) IV SCH ×4 (02:20→22:02)
[2019-06-07] MEDS: NS 1,000 ML IV SCH ×2 (02:21→13:52)
[2019-06-07] MEDS: HEPARIN SOD (PORCINE) 5000 UNITS/ML VIAL (J1644 PER 1000UNITS) SC SCH ×3 (05:46→22:02)
[2019-06-07 06:00] VITALS: BP 138/81
[2019-06-07] MEDS: PANTOPRAZOLE 40MG TAB (PROTONIX) PO SCH ×3 (09:00→22:02)
[2019-06-07] MEDS: VITAMIN D 1,000 INTERNATIONAL UNITS TABLET PO SCH (09:00)
--- NOTE | 2019-06-07 11:59 | IPNPDOC ---
Subjective Date Seen The patient was seen on 06/07/19. Subjective Chief Complaint/HPI Patient is comfortable offers no new complaints at the present time, patient is DNR/DNI and awaiting hospice consultation today for inpatient hospice General: Denies: ROS Unobtainable, Chills, Night Sweats, Fatigue, Malaise, Normal Appetite, Other Symptoms Constitutional: Denies: Chills, Fever, Malaise, Night Sweats, Weakness, Fatigue, Weight Loss, Lethargy, Other Eyes: Denies: Pain, Vision change, Conjunctivae inflammation, Eyelid inflammation, Redness, Other ENT: Denies: Head Aches, Ear Pain, Dysphagia, Sinus Congestion, Post Nasal Drip, Sore Throat, Epistaxis, Other Symptoms Skin: Denies: Rash, Lesions, Jaundice, Bruising, Itching, Dry, Breakdown, Nail Changes, Other Pulmonary: Denies: Dyspnea, Cough, Pleuritic Chest Pain, Other Symptoms Cardiovascular: Denies: Chest Pain, Palpitations, Orthopnea, Paroxysmal Noc. Dyspnea, Edema, Lt Headedness, Other Symptoms Gastrointestinal: Denies: Nausea, Vomiting, Abdominal Pain, Diarrhea, Const ipation, Melena, Hematochezia, Other Symptoms Endocrine: Denies: Polydipsia, Polyphagia, Polyuria, Heat Intolerance, Cold Intolerance, Other Endocrine Sx Musculoskeletal: Denies: Neck Pain, Back Pain, Shoulder Pain, Arm Pain, Hand Pain, Leg Pain, Foot Pain, Joint Pain, Muscle Pain, Spasms, Other Symptoms Neurological: Denies: Weakness, Numbness, Incoordination, Change in speech, Confusion, Seizures, Other Symptoms Objective Physical Examination Chest Exam: Positive: Clear to auscultation, Normal air movement Heart Exam: Positive: Tachycardic, Regular Rhythm, Normal S1, Normal S2; Negative: Murmurs, Rubs Telemetry: Positive: Sinus, Tachycardia Abdomen Exam: Positive: BS Hypoactive, Soft, Hepatospenomegaly (palpable hepatomegaly) Extremity Exam: Positive: Normal pulses Assessment /Plan Problems (1) Acute metabolic encephalopathy Status: Acute Problem Text: Patient metabolic encephalopathy secondary to metastatic disease to brain with cerebral edema Patient is alert and awake and in improved with IV Decadron, which I will change to by mouth Decadron today Awaiting a hospice consultation with the family today to make arrangements for home hospice (2) Carcinoma of lung Status: Acute Problem Text: Discussed with Dr. Anne yesterday Aurelia Barrera. The patient and she got a DNR from patient and his advise hospice care. Patient's condition is terminal very poor prognosis I had a discussion with patient's daughter this morning and she agreed with home hospice. 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 Status: Acute Problem Text: As above (4) Hypomagnesemia Status: Acute Problem Text: Corrected (5) Hypokalemia Status: Acute Problem Text: Potassium supplement ordered again today (6) Protein-calorie malnutrition, severe Status: Acute Problem Text: Severe protein calorie malnutrition secondary to malignancy Patient is not taking any meals orally at the present time Will continue supportive care and hospice care is pending Plan/VTE VTE Prophylaxis Ordered?: Yes VS, I&O, 24H, Fishbone Vital Signs/I&O Vital Signs Date Time Temp Pulse Resp B/P (MAP) Pulse Ox O2 Delivery O2 Flow Rate FiO2 06/07/19 06:00 98.1 101 18 138/81 (100) 96 Nasal Cannula 3.0 I&O- Last 24 Hours up to 6 AM 06/07/19 06:00 Intake Total 1975 ml Output Total 1 ml Balance 1974 ml Laboratory Data Microbiology Microbiology 06/04/19 Urine Culture - Final, Complete Strep Agalactiae Group B 06/04/19 Blood Culture - Preliminary, Resulted No Growth after 48 hours. All Specime... JOSELINE JAFFE MD Jun 07, 2019 11:59
[2019-06-07 14:00] VITALS: BP 132/75
[2019-06-07] MEDS: MORPHINE 2 MG/ML 1ML VIAL (J2270) IV PRN ×2 (16:36→23:17)
[2019-06-07 22:00] VITALS: BP 134/80
[2019-06-08] MEDS: dexameTHASONE 4 MG/ML 1ML VIAL (J1100) IV SCH ×2 (03:32→09:50)
[2019-06-08] MEDS: NS 1,000 ML IV SCH (03:32)
[2019-06-08 06:00] VITALS: BP 130/70
[2019-06-08] MEDS: HEPARIN SOD (PORCINE) 5000 UNITS/ML VIAL (J1644 PER 1000UNITS) SC SCH (06:38)
[2019-06-08] MEDS: VITAMIN D 1,000 INTERNATIONAL UNITS TABLET PO SCH (09:00)
[2019-06-08] MEDS: PANTOPRAZOLE 40MG TAB (PROTONIX) PO SCH (09:00)
[2019-06-08] MEDS: MORPHINE 2 MG/ML 1ML VIAL (J2270) IV PRN (10:29)
[2019-06-08] MEDS: ONDANSETRON 4MG/2ML VIAL (J2405) IV PRN (10:29)
[2019-06-08] MEDS ORDERED: LORA0.5T5 PO (10:50)
[2019-06-08] MEDS ORDERED: MORP20SO3 PO (10:50)
[2019-06-08] MEDS ORDERED: HYOS125TA PO (10:50)
--- NOTE | 2019-06-08 10:57 | DS.PDOC ---
Discharge Summary General Date of Admission Jun 05, 2019 at 02:26 Date of Discharge 06/08/19 Attending Physician: MARTHA JENNINGS MD Discharge Summary PROCEDURES PERFORMED DURING STAY: None. ADMITTING DIAGNOSES: 1. Failure to thrive, metastatic lung cancer. DISCHARGE DIAGNOSES: 1. Failure to thrive, metastatic lung cancer. COMPLICATIONS/CHIEF COMPLAINT: Cancer Related Pain;. HISTORY OF PRESENT ILLNESS: 73-year-old female with past medical history of metastatic lung cancer was admitted for failure to thrive and pain, symptoms have been controlled with when necessary medications. Patient has elected for hospice care, hospice eval completed, has been accepted to hospice home. Patient will be discharged there today, will be sent with Ativan, morphine, hyoscyamine for comfort. Patient seen in the morning today, all questions answered, family at bedside, no complaints at this time. HOSPITAL COURSE: As above. DISCHARGE MEDICATIONS: Please see below. ALLERGIES: Please see below. PHYSICAL EXAMINATION: VITAL SIGNS: Please see below. GENERAL: No distress HEENT: Normocephalic, atraumatic, moist mucous membranes NECK: Supple CARDIOVASCULAR EXAMINATION: S1, S2, no murmurs RESPIRATORY EXAMINATION: Clear to auscultation, no wheezing ABDOMINAL EXAMINATION: Soft, nontender, nondistended, positive bowel sounds EXTREMITIES: Range of motion intact SKIN: No rash NEUROLOGICAL EXAMINATION: Alert and oriented 3, no focal deficits PSYCHIATRIC EXAMINATION: Calm and cooperative LABORATORY DATA: Please see below. IMAGING: CT abdomen and pelvis showing numerous metastatic lesions in the liver PROGNOSIS: Poor ACTIVITY: As tolerated. DIET: Regular DISCHARGE PLAN: Further management as per hospice care DISPOSITION: Hospice house. DISCHARGE INSTRUCTIONS: 1. As above. DISCHARGE CONDITION: Stable. TIME SPENT ON DISCHARGE: Greater than 27 minutes. Vital Signs/I&Os Vital Signs Date Time Temp Pulse Resp B/P (MAP) Pulse Ox O2 Delivery O2 Flow Rate FiO2 06/08/19 10:42 18 93 Room Air 06/08/19 06:00 97.9 96 130/70 (90) 06/07/19 22:00 2.0 I&O- Last 24 Hours up to 6 AM 06/08/19 06:00 Intake Total 735 ml Output Total 200 ml Balance 535 ml Microbiology Microbiology 06/04/19 Urine Culture - Final, Complete Strep Agalactiae Group B 06/04/19 Blood Culture - Preliminary, Resulted No Growth after 72 hours. All specime... Discharge Medications Scheduled PRN Hyoscyamine Sulfate (Hyoscyamine Sulfate) 0.125 Mg Tab.subl, 0.125 MG PO Q4HP PRN for TERMINAL SECRETIONS Use sublingually if unable to swallow Lorazepam (Lorazepam) 0.5 Mg Tablet, 0.5 MG PO Q4HP PRN for ANXIETY/AGITATION Use sublingually if unable to swallow Morphine Sulfate (Morphine Sulfate) 100 Mg/5 Ml Solution, 0.25-1 ML PO Q2H PRN for PAIN OR DYSPNEA Use sublingually if unable to swallow Allergies Coded Allergies: No Known Drug Allergies (Verified Allergy, Unknown, 05/25/19) MARTHA JENNINGS MD Jun 08, 2019 10:57
== END 2019-06-08 14:05 | disposition hospice, inpatient (51) | DRG 70 ==
LOC: M ED 20:07 → M ED INP 06-05 02:26 → ENRESERV 06-05 03:00 → M MSPAV 06-05 03:40
PROVIDERS: ADMIT Internal Medicine; ATTEND Internal Medicine
PROC: 0FB23ZX Excision of Left Lobe Liver, Percutaneous Approach, Diagnostic (ICD-10-PCS; principal; 2019-06-02)
DX: G93.41 Metabolic encephalopathy (principal); E43 Unspecified severe protein-calorie malnutrition; G93.6 Cerebral edema; C78.7 Secondary malignant neoplasm of liver and intrahepatic bile duct; C34.11 Malignant neoplasm of upper lobe, right bronchus or lung; N39.0 Urinary tract infection, site not specified; C79.31 Secondary malignant neoplasm of brain; G89.4 Chronic pain syndrome; F17.200 Nicotine dependence, unspecified, uncomplicated; Z66 Do not resuscitate; R62.7 Adult failure to thrive; E83.42 Hypomagnesemia; E87.6 Hypokalemia; Z79.899 Other long term (current) drug therapy; Z90.710 Acquired absence of both cervix and uterus; Z96.641 Presence of right artificial hip joint; Z85.42 Personal history of malignant neoplasm of other parts of uterus